=== PATIENT | male | born 1975 | race African-American/Black ===

== ENCOUNTER 2016-12-31 10:42 | Emergency (ER) | payer SELFPAY ==
[~2016-12-31] VITALS: Ht 182.9 cm; Wt 95.0 kg
[~2016-12-31 10:42] MED LIST: BACT800T5 PO; CEPH500C3 PO; DICL75 PO
[2016-12-31 10:44] VITALS: BP 169/110; PULSE 87; RESP 20; TEMP 99.5; O2SAT 97
--- NOTE | 2016-12-31 11:19 | PD ---
HPI Chief Complaint: Skin Problem Time Seen by Provider: 10:51 Travel History International Travel<30 days: No Contact w/Intl Traveler<30days: No Traveled to known affect area: No History of Present Illness HPI Patient is a 41-year-old male who presents to emergency room with multiple complaints. Patient reports that for the past few years, he has had some penile discharge. Reports that a few years ago, he has a urethral stricture operated on and since then, he has been "leaking pus and urine" from the underside of his penis. Reports that he would like this evaluated. Reports that he noticed white pus from this area that has been ongoing for the past few years. Reports that he is sexually active - denies hx of std's in the past. Denies dysuria/urinary urgency/freq. Patient also reports concern for an abscess on his left butt cheek. Reports that he has had multiple abscesses area before which required incision and drainage, reports that he noticed a lump a few days ago and is here for evaluation for this. Patient reports that his tetanus is up-to-date (2014). Patient denies any fevers or chills, denies any IV drug abuse. Denies any abdominal pain, nausea or vomiting or diarrhea. Patient with no other complaints. PFSH Past Medical History Medical History: Denies Significant Hx Diminished Hearing: No Influenza Vaccination: No Past Surgical History Genitourinary Surgery: Yes Other Surgery: Yes (LT EAR; PENIS) Social History Alcohol Use: Yes (occ) Tobacco Use: Yes (1/2 PPD) Substance Use: No Allergies-Medications (Allergen,Severity, Reaction): Coded Allergies: No Known Allergies (Unverified , 12/31/16) Reported Meds & Prescriptions Reported Meds & Active Scripts Active Ibuprofen 600 Mg Tab 600 Mg PO Q6H PRN Augmentin (Amoxicillin-Clavulanate) 875-125 Mg Tab 1 Tab PO BID 7 Days Review of Systems General / Constitutional: No: Fever Eyes: No: Visual changes HENT: No: Headaches Cardiovascular: No: Chest Pain or Discomfort Respiratory: No: Shortness of Breath Gastrointestinal: No: Nausea, Vomiting, Abdominal Pain Genitourinary: Positive: Other (penile discharge), No: Urgency, Frequency, Dysuria Musculoskeletal: No: Pain Skin: Positive Other (abscess to his left gluteus), No Rash Neurologic: No: Weakness Psychiatric: No: Depression Endocrine: No: Polydipsia Hematologic/Lymphatic: No: Easy Bruising Physical Exam Narrative GENERAL: nad, nontoxic SKIN: Focused skin assessment warm/dry. Patient with nonfluctuant abscess to left gluteus with no surrounding cellulitis/induration/area of pus HEAD: Atraumatic. Normocephalic. EYES: Pupils equal and round. No scleral icterus. No injection or drainage. ENT: No nasal bleeding or discharge. Mucous membranes pink and moist. NECK: Trachea midline. No JVD. CARDIOVASCULAR: Regular rate and rhythm. No murmur appreciated. RESPIRATORY: No accessory muscle use. Clear to auscultation. Breath sounds equal bilaterally. GASTROINTESTINAL: Abdomen soft, non-tender, nondistended. Hepatic and splenic margins not palpable. : patient with white discharge from base of penis, no redness or erythema, no warmth or swelling MUSCULOSKELETAL: No obvious deformities. No clubbing. No cyanosis. No edema. NEUROLOGICAL: Awake and alert. No obvious cranial nerve deficits. Motor grossly within normal limits. Normal speech. PSYCHIATRIC: Appropriate mood and affect; insight and judgment normal. Data Data Last Documented VS Vital Signs Date Time Temp Pulse Resp B/P Pulse Ox O2 Delivery O2 Flow Rate FiO2 12/31/16 10:57 18 12/31/16 10:44 99.5 87 169/110 97 Room Air Orders Gc And Chlamydia Pcr (12/31/16 10:56) Urinalysis - C+S If Indicated (12/31/16 10:56) Urine Culture (12/31/16 11:00) Azithromycin Powd Pack (Zithromax Powd P (12/31/16 11:30) Lidocaine 1% Inj (50 Ml) (Xylocaine 1% I (12/31/16 11:30) Ceftriaxone Inj (Rocephin Inj) (12/31/16 11:30) Labs Laboratory Tests Test 12/31/16 11:00 Urine Color YELLOW Urine Turbidity HAZY Urine pH 7.5 Urine Specific [place] 1.024 Urine Protein 30 mg/dL Urine Glucose (UA) NEG mg/dL Urine Ketones NEG mg/dL Urine Occult Blood SMALL Urine Nitrite NEG Urine Bilirubin NEG Urine Urobilinogen LESS THAN 2.0 MG/DL Urine Leukocyte Esterase LARGE Urine RBC 26 /hpf Urine WBC /hpf Urine Amorphous Sediment RARE Urine Bacteria RARE /hpf Urine Mucus FEW /lpf Urine Sperm RARE Microscopic Urinalysis Comment CULTURE INDICATED MDM Medical Decision Making Medical Screen Exam Complete: Yes Emergency Medical Condition: Yes Interpretation(s) Vital Signs Date Time Temp Pulse Resp B/P Pulse Ox O2 Delivery O2 Flow Rate FiO2 12/31/16 10:57 18 12/31/16 10:44 99.5 87 20 169/110 97 Room Air Differential Diagnosis Differential includes abscess to gluteus, urethritis, urethral stricture, uti Narrative Course Patient is a 41-year-old male who presents to emergency for evaluation of left- sided gluteal abscess as well as penile discharge. Patient with nonfluctuant abscess to his left gluteus. Discussed need for warm compresses, will treat with antibiotics. Patient also reports that he has been having penile discharge for the past few years. Urine gonorrhea/chlamydia cultures ordered, UA ordered. Laboratory Tests Test 12/31/16 11:00 Urine Color YELLOW (YELLW/STRAW) Urine Turbidity HAZY (CLEAR) Urine pH 7.5 (5.0-8.5) Urine Specific [place] 1.024 (1.002-1.035) Urine Protein 30 mg/dL (NEG-TRACE) Urine Glucose (UA) NEG mg/dL (NEG) Urine Ketones NEG mg/dL (NEG) Urine Occult Blood SMALL (NEG) Urine Nitrite NEG (NEG) Urine Bilirubin NEG (NEG) Urine Urobilinogen LESS THAN 2.0 MG/DL (LESS THAN 2.0) Urine Leukocyte Esterase LARGE (NEG) Urine RBC 26 /hpf (0-3) Urine WBC /hpf (0-5) Urine Amorphous Sediment RARE Urine Bacteria RARE /hpf (NONE) Urine Mucus FEW /lpf (OCC) Urine Sperm RARE (NONE) Microscopic Urinalysis Comment CULTURE INDICATED UA with large leuk esterase, rare bacteria, innumerable white blood cells - given his penile discharge and pus, will treat for urethritis Patient does have abscess to left gluteus, with Bactrim and Keflex. sent Diagnosis Primary Impression: Gluteal abscess Additional Impressions: Urethritis UTI (urinary tract infection) Qualified Code: N30.01 - Acute cystitis with hematuria Referrals: Edenilson Rosas MD follow up for abscess Fynes,Theodore Morley MD follow up for urethral stricture complications Patient Instructions: General Instructions Additional Instructions: Please apply warm compresses to area of abscess Call general surgeon first thing in the morning for earliest follow up Please call Urologist first thing in the morning for earliest follow up Follow up with your primary care doctor Take all medications as prescribed Please follow up with all cultures from today, if cultures are positive, then all sexual partners will need to be notified and treated as well Return to ER as needed Med/Other Pt SpecificInfo: Prescription(s) given Scripts Sulfamethoxazole-Trimethoprim (Bactrim DS)800-160 Mg Tab1 Tab PO BID 7 Days Ref 0 Prov:Tiny Garner DO 12/31/16 Cephalexin (Keflex)500 Mg [id number] Mg PO Q6H 7 Days Ref 0 Prov:Tiny Garner DO 12/31/16 Ibuprofen 600 Mg [id number] Mg PO Q6H PRN (Pain/Inflammation) #40 TAB Ref 0 Prov:Tiny Garner DO 12/31/16 Disposition: 01 DISCHARGE HOME Condition: Stable Tiny Garner DO Dec 31, 2016 11:19
[2016-12-31 11:21] LABS: BACTERIA, URINE RARE /hpf; BLOOD, URINE SMALL (NEG); COMMENT (UR) CULTURE INDICATED; CULTURE IF INDICATED CULTURE INDICATED; GLUCOSE,URINE NEG (NEG); KETONE, URINE NEG (NEG); MUCUS URINE FEW /lpf (OCC); NITRITE,URINE NEG (NEG); PH, URINE 7.5 (5.0-8.5); URINE COLOR YELLOW (YELLW/STRAW)
[2016-12-31] MEDS ORDERED: IBUP-232 PO (11:22)
[2016-12-31] MEDS ORDERED: AUGM875T3 PO (11:22)
[2016-12-31] MEDS ORDERED: AZITHROMYCIN PWD FOR SUSP 1 GM PACKET PO ONE (11:30)
[2016-12-31] MEDS ORDERED: LIDOCAINE HCL 1% 50 ML VIAL IM ONE (11:30)
[2016-12-31] MEDS ORDERED: BACT800T5 PO (11:32)
[2016-12-31] MEDS ORDERED: CEPH-460 PO (11:32)
[2016-12-31 12:19] VITALS: BP 160/97
[2016-12-31 14:07] LABS: CHLAMYDIA PCR NOT DETECTED (NOT DETECT); NEISSERIA PCR DETECTED (NOT DETECT)
== END 2016-12-31 12:22 | disposition home or self-care (01) ==
LOC: NEPD 10:42
DX: L02.31 Cutaneous abscess of buttock (principal); N34.2 Other urethritis; N30.01 Acute cystitis with hematuria; F17.210 Nicotine dependence, cigarettes, uncomplicated
CPT/HCPCS: 81001; 87086; 87491; 87591; 96372; 99284; J0696